=== PATIENT | female | born 1970 | race Asian ===

== ENCOUNTER 2018-05-23 06:36 | Day surgery (SDC) | payer OTHER ==
[2018-05-23] MEDS ORDERED: PROPOFOL 40 ML (08:36)
[2018-05-23] MEDS ORDERED: LIDOCAINE 2% (SDV) 5 ML INJ (08:36)
[2018-05-23] MEDS ORDERED: ONDANSETRON 4 MG INJ IV (09:00)
[2018-05-23] MEDS ORDERED: hydrALAzine 20 MG INJ IV (09:00)
[2018-05-23] MEDS ORDERED: LABETALOL HCL 20MG INJ IV (09:00)
[2018-05-23] MEDS ORDERED: FENTAnyl 50 MCG/ML VIAL IV (09:00)
[2018-05-23] MEDS ORDERED: EPHEDrine SULFATE 50 MG/5 ML SYG IV (09:00)
== END 2018-05-23 12:14 | disposition home or self-care (01) ==
LOC: GIL 06:36
DX: K29.50 Unspecified chronic gastritis without bleeding (principal); D13.0 Benign neoplasm of esophagus; E78.5 Hyperlipidemia, unspecified
CPT/HCPCS: 43239; 84703; 88305; 88312